=== PATIENT | female | born 1980 | race Caucasian/White ===

== ENCOUNTER 2019-02-06 08:05 | Outpatient (CLI) | payer BC ==
--- NOTE | 2019-02-06 08:30 | ULT ---
US Gallbladder RUQ History: [Hepatic steatosis] Comparison: None available Findings: Real-time grayscale and color evaluation of the right upper quadrant of the abdomen was per formed. Fissures portion of pancreas aorta and IVC are unremarkable. Mild increased diffuse hepatic echotextu re. No mass. The measures 13.4 cm in length. Main portal vein is patent antegrade flow with normal phasicity. Comm on bile duct is normal. Gallbladder is normal. Right kidney measures 9.2 cm in length. There is an echogenic focus without posterior acoustic shadow ing superior pole right kidney measuring up to 9 mm. Impression: 1. Mild diffuse increased echotexture suggesting steatosis. 2. 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
== END 2019-02-06 08:06 | disposition home or self-care (01) ==
LOC: SCSULT 08:05
PROVIDERS: ATTEND Family Medicine
DX: K76.0 Fatty (change of) liver, not elsewhere classified (principal); R93.2 Abnormal findings on diagnostic imaging of liver and biliary tract; R93.421 Abnormal radiologic findings on diagnostic imaging of right kidney
CPT/HCPCS: 76705

== ENCOUNTER 2023-09-26 08:33 | Outpatient (CLI) | payer BC | END 2023-09-26 08:34 | disposition home or self-care (01) | LOC: BICMAMMO 08:33 | PROVIDERS: ATTEND Internal Medicine | DX: N64.4 Mastodynia (principal) | CPT/HCPCS: G0279 ==